=== PATIENT | female | born 1995 | race African-American/Black ===

== ENCOUNTER 2019-03-17 18:21 | Emergency (ER) | payer OTHER ==
[~2019-03-17] VITALS: Ht 157.5 cm; Wt 76.2 kg
[~2019-03-17 18:21] MED LIST: ALBU17AE4 IH
[2019-03-17 18:27] VITALS: BP 137/84
[2019-03-17 18:47] LABS: APPEARANCE,URINE Clear (CLEAR); BILIRUBIN,URINE Negative (NEGATIVE); BLOOD, URINE Negative Ery/uL (NEGATIVE); COLOR,URINE Yellow (YELLOW); KETONES,URINE Negative (NEGATIVE); LEUKOCYTE ESTERASE ,URINE Negative (NEGATIVE); NITRITE, URINE Negative (NEGATIVE); PH,URINE 6.5 (5.0-8.0); PROTEIN,URINE Negative (NEGATIVE); UGLUCOSE Negative (NEGATIVE); UROBILINOGEN,URINE 0.2 EU/dL (0.2)
[2019-03-17] MEDS ORDERED: ONDANSETRON 4 MG TAB.RAPDIS ONE (19:06)
[2019-03-17] MEDS: ONDANSETRON 4 MG TAB.RAPDIS SL ONE (19:08)
== END 2019-03-17 19:10 | disposition home or self-care (01) ==
LOC: ER 18:21
DX: R19.7 Diarrhea, unspecified (principal); R10.84 Generalized abdominal pain; R11.0 Nausea; J45.909 Unspecified asthma, uncomplicated; Z79.899 Other long term (current) drug therapy
CPT/HCPCS: 81001; 84703; 99283; Q0162; 81000-TC

== ENCOUNTER 2023-02-22 06:39 | Emergency (ER) | payer OTHER ==
[~2023-02-22] VITALS: Ht 162.6 cm; Wt 79.4 kg
[2023-02-22] MEDS ORDERED: FLUORESCEIN SODIUM OPHTH 1 EA STRIP OP ONE (07:30)
[2023-02-22] MEDS ORDERED: FLUORESCEIN SODIUM OPHTH 1 EA STRIP ONE (07:39)
[2023-02-22] MEDS ORDERED: ERYT3.5O9 EACHEYE (07:56)
[2023-02-22 08:06] VITALS: BP 134/76; TEMP 98.1; O2SAT 98
== END 2023-02-22 08:06 | disposition home or self-care (01) ==
LOC: ER 06:42
DX: H10.9 Unspecified conjunctivitis (principal); J45.909 Unspecified asthma, uncomplicated